=== PATIENT | male | born 1985 | race Two or more races ===

== ENCOUNTER 2019-09-30 13:48 | Emergency (ER) | payer SELFPAY ==
[2019-09-30 13:57] VITALS: BP 134/67; PULSE 87; TEMP 98.2; BMI 27.1
--- NOTE | 2019-09-30 14:26 | PDOC ---
History of Present Illness - General Chief Complaint: Laceration Stated Complaint: CUT RT FOOT Time Seen by Provider: 09/30/19 13:54 History Source: Patient Exam Limitations: No Limitations Past History - Past Medical History Allergies/Adverse Reactions: Allergies Allergy/AdvReac Type Severity Reaction Status Date / Time No Known Allergies Allergy Verified 09/30/19 13:54 Home Medications: Ambulatory Orders Cephalexin Monohydrate [Keflex] 500 mg PO Q8H #30 capsule 12/09/12 No Home Medications 0 dose .ROUTE UTDICT 12/12/12 Oxycodone HCl/Acetaminophen [Percocet 5-325 mg Tablet] 1 - 2 tab PO Q6H PRN #8 tablet 12/12/12 Sulfamethoxazole/Trimethoprim [Bactrim *Ds*] 1 tab PO BID #13 tablet 12/12/12 Ibuprofen [Motrin] 600 mg PO Q6H PRN #18 tablet 12/13/12 - Psycho Social/Smoking Cessation Hx Smoking Status: Yes Smoking History: Current some day smoker Number of Cigarettes Smoked Daily: 6 Information on smoking cessation initiated: Yes Hx Alcohol Use: No Drug/Substance Use Hx: No *Physical Exam - Vital Signs Last Vital Signs Temp Pulse Resp BP Pulse Ox 98.2 F 87 18 134/67 99 09/30/19 13:55 09/30/19 13:55 09/30/19 13:55 09/30/19 13:55 09/30/19 13:55 - Physical Exam General Appearance: No: Apparent Distress Extremity: positive: Normal Range of Motion (of L foot) Integumentary: positive: Other (<0.5 cm abrasion to plantar surface of L foot, no puncture wound, no active bleeding, no redness). negative: Ecchymosis Neurologic: positive: Alert Medical Decision Making - Medical Decision Making 33 y/o M with no sig pmh presents with cut to bottom of L foot from today. States was walking in street and there was a metal ?pole sticking out which cut his foot. Patient was wearing shoes. Last tetanus was last year. Superficial abrasion to bottom of foot No puncture wound noted Site around wound cleaned with hydrogen peroxide Wound covered with bacitracin Stable for dc 09/30/19 14:23 Discharge - Discharge Information Problems reviewed: Yes Clinical Impression/Diagnosis: Abrasion Condition: Stable Disposition: HOME - Admission No - Additional Discharge Information Prescription Drug Monitoring Program (I-STOP) results: I-STOP not reviewed - Follow up/Referral - Patient Discharge Instructions Patient Printed Discharge Instructions: DI for Abrasion Additional Instructions: Thank you for choosing [facility]. It was a pleasure taking care of you. You may apply Neosporin over site of abrasion Return to the Emergency Department if your symptoms worsen or persist, you have fever, swelling, redness, purulent drainage, streaking or other concerning symptoms. - Post Discharge Activity
== END 2019-09-30 14:33 | disposition home or self-care (01) ==
LOC: JERFT 13:48
DX: S90.812A Abrasion, left foot, initial encounter (principal); W22.09XA Striking against other stationary object, initial encounter; Y93.01 Activity, walking, marching and hiking; Y92.414 Local residential or business street as the place of occurrence of the external cause; Y99.8 Other external cause status
CPT/HCPCS: 99281-25